=== PATIENT | female | born 1930 | race Caucasian/White ===

== ENCOUNTER 2016-03-18 05:07 | Inpatient (IN) | payer OTHER ==
[~2016-03-18] VITALS: Ht 165.1 cm; Wt 66.8 kg
[~2016-03-18 05:07] MED LIST: CALCIUM 250+D1 EACH PO; CENTRUM SILV1 TABLE1 PO; CLEARLAX510 GM PO; Coumadin dosing per PO; DITROPAN XL5 MG PO; Ditropan PO; ENDOCET 5-3251 EACH PO; Feosol PO; IRON160 M1 PO; Metamucil Packet PO; NEURONTIN300 MG PO; Omega III EPA + DHA PO; PRAVACHOL40 MG PO; Pravachol PO; TENORMIN25 MG PO; Tenormin PO; Tums PO; Vitamin D PO
[2016-03-18 06:36] VITALS: BP 167/70
[2016-03-18 09:59] LABS: HEMATOCRIT 32.6 % (36.0-46.0); MCV 88.8 FL (83-99)
[2016-03-18 12:00] VITALS: BP 162/70
[2016-03-18 15:04] VITALS: BP 135/63
[2016-03-18 20:00] VITALS: BP 126/60
[2016-03-19] VITALS: BP 159/70
[2016-03-19 04:00] VITALS: BP 142/65
[2016-03-19 05:58] LABS: HEMATOCRIT 31.1 % (36.0-46.0); MCV 89.4 FL (83-99)
[2016-03-19 06:23] LABS: ANION GAP 8 MEQ/L (2-14); CHLORIDE 104 MEQ/L (99-109); GFR ESTIMATE (CALCULATED) > 59 mL/min/; GLUCOSE 130 mg/dL (70-99); POTASSIUM 4.5 MEQ/L (3.7-5.4); SAMPLE HEMOLYSIS CHECK 0; SAMPLE ICTERIC CHECK 0; SAMPLE LIPEMIA CHECK 0; SODIUM 139 MEQ/L (136-147); UREA NITROGEN (BUN) 17 mg/dL (9-23)
[2016-03-19 08:12] VITALS: BP 139/65
[2016-03-19 16:59] VITALS: BP 145/66
[2016-03-19 23:11] VITALS: BP 136/62
[2016-03-20 07:32] VITALS: BP 130/59
[2016-03-20] MEDS ORDERED: LIDOCAINE700 MG TD (14:30)
[2016-03-20] MEDS ORDERED: DOCUSATE SODIU100 MG PO (14:30)
[2016-03-20] MEDS ORDERED: SENNA PLUS TAB1 EACH PO (14:30)
[2016-03-20] MEDS ORDERED: LOVENOX40 MG/0.4 SC (14:30)
[2016-03-20 15:40] VITALS: BP 106/53
[2016-03-20] MEDS ORDERED: ROXICODONE5 MG PO ×2 (18:01→18:02)
== END 2016-03-20 16:11 | DRG 470 ==
LOC: 3EAST 05:07 → 2SOUTH 05:07 → 3EAST 11:50 → 2SOUTH 13:19 → 3EAST 03-20 16:11
PROVIDERS: Orthopaedic Surgery
PROC: 0SR90J9 Replacement of Right Hip Joint with Synthetic Substitute, Cemented, Open Approach (ICD-10-PCS; principal; 2016-03-18)
DX: M16.11 Unilateral primary osteoarthritis, right hip (principal); E78.2 Mixed hyperlipidemia; I10 Essential (primary) hypertension; G47.30 Sleep apnea, unspecified; E11.9 Type 2 diabetes mellitus without complications; D64.9 Anemia, unspecified; K21.9 Gastro-esophageal reflux disease without esophagitis; K59.00 Constipation, unspecified; M81.0 Age-related osteoporosis without current pathological fracture; Z96.653 Presence of artificial knee joint, bilateral; Z88.2 Allergy status to sulfonamides; Z79.82 Long term (current) use of aspirin
CPT/HCPCS: 71010; 80048; 85014; 85018; 94799; C1713; C1776; J0131; J0690; J1650; J1885; J3010; J7050; J7120; S0020

== ENCOUNTER 2016-03-20 14:55 | Inpatient (IN) | payer OTHER ==
[~2016-03-20] VITALS: Ht 165.1 cm; Wt 68.3 kg
[~2016-03-20 14:55] MED LIST changes: +DOCUSATE SODIU100 MG PO; +LIDOCAINE700 MG TD; +LOVENOX40 MG/0.4 SC; +SENNA PLUS TAB1 EACH PO
[2016-03-20 16:37] VITALS: BP 147/64
[2016-03-20] MEDS ORDERED: ROXICODONE5 MG PO ×2 (18:01→18:02)
[2016-03-21 02:21] VITALS: BP 144/64
[2016-03-21 04:18] VITALS: BP 151/67
[2016-03-21 05:36] LABS: HEMATOCRIT 28.6 % (36.0-46.0); MCH 30.2 PG (29.0-34.0); MCHC 33.9 G/DL (30.0-36.0); MCV 89.1 FL (83-99); MEAN PLAT.VOLUME 10.8 uM^3 (9.5-12.4); PLATELET COUNT 130 K/uL (156-360); RBC DIS.WIDTH-CV 12.8 % (11.8-14.6); RBC DIS.WIDTH-SD 41.4 % (39-53); RED BLOOD COUNT 3.21 M/uL (3.80-5.20); WHITE BLOOD COUNT 6.4 K/uL (4.1-10.2)
[2016-03-21 05:57] LABS: ALKALINE PHOSPHATASE 42 IU/L (3-129); ANION GAP 7 MEQ/L (2-14); CHLORIDE 101 MEQ/L (99-109); GFR ESTIMATE (CALCULATED) > 59 mL/min/; GLUCOSE 117 mg/dL (70-99); POTASSIUM 4.1 MEQ/L (3.7-5.4); SAMPLE HEMOLYSIS CHECK 0; SAMPLE ICTERIC CHECK 0; SAMPLE LIPEMIA CHECK 0; SODIUM 136 MEQ/L (136-147); TOTAL BILIRUBIN 0.7 MG/DL (0.0-1.0); UREA NITROGEN (BUN) 16 mg/dL (9-23)
[2016-03-21 15:15] VITALS: BP 132/60
[2016-03-22 05:40] VITALS: BP 148/67
[2016-03-22 15:40] VITALS: BP 125/77
[2016-03-23 05:36] VITALS: BP 165/73
[2016-03-23 15:41] VITALS: BP 152/69
[2016-03-24 05:10] VITALS: BP 159/70
[2016-03-24 05:37] VITALS: BP 183/78
[2016-03-24 15:42] VITALS: BP 164/67
[2016-03-25 05:23] VITALS: BP 182/72
[2016-03-25 07:08] VITALS: BP 174/76
[2016-03-25 09:11] VITALS: BP 125/99
[2016-03-25 15:09] VITALS: BP 141/63
[2016-03-26 05:34] VITALS: BP 133/62
[2016-03-26 15:26] VITALS: BP 122/60
[2016-03-27 04:24] VITALS: BP 143/65
[2016-03-27 15:51] VITALS: BP 137/61
[2016-03-28 05:19] LABS: HEMATOCRIT 29.4 % (36.0-46.0); MCH 29.4 PG (29.0-34.0); MCHC 33.3 G/DL (30.0-36.0); MCV 88.3 FL (83-99); RBC DIS.WIDTH-CV 12.9 % (11.8-14.6); RBC DIS.WIDTH-SD 39.7 % (39-53); RED BLOOD COUNT 3.33 M/uL (3.80-5.20); WHITE BLOOD COUNT 6.5 K/uL (4.1-10.2)
[2016-03-28 05:28] LABS: MEAN PLAT.VOLUME 9.9 uM^3 (9.5-12.4)
[2016-03-28 05:34] VITALS: BP 138/72
[2016-03-28 05:36] LABS: PLATELET COUNT 320 K/uL (156-360)
[2016-03-28 05:40] LABS: CHLORIDE 105 mEq/L (99-109); POTASSIUM 4.6 mEq/L (3.7-5.4); SODIUM 138 mEq/L (136-147)
[2016-03-28 05:42] LABS: GLUCOSE 108 mg/dL (70-99)
[2016-03-28 05:44] LABS: TOTAL BILIRUBIN 0.3 mg/dL (0.0-1.0)
[2016-03-28 05:45] LABS: ALKALINE PHOSPHATASE 53 IU/L (3-129); GFR ESTIMATE (CALCULATED) > 59 mL/min/
[2016-03-28 05:46] LABS: UREA NITROGEN (BUN) 15 mg/dL (9-23)
[2016-03-28 06:19] LABS: ANION GAP 8 MEQ/L (2-14)
[2016-03-28 16:20] VITALS: BP 132/58
[2016-03-29 06:09] VITALS: BP 163/69
== END 2016-03-29 14:39 | disposition home health service (06) | DRG 560 ==
LOC: 3WEST 14:55
PROVIDERS: Physical Medicine & Rehabilitation Pain Medicine
PROC: F07M0ZZ Range of Motion and Joint Mobility Treatment of Musculoskeletal System - Whole Body (ICD-10-PCS; principal; 2016-03-20)
DX: Z47.1 Aftercare following joint replacement surgery (principal); Z96.641 Presence of right artificial hip joint; R26.2 Difficulty in walking, not elsewhere classified; G89.18 Other acute postprocedural pain; M25.551 Pain in right hip; M80.051D Age-related osteoporosis with current pathological fracture, right femur, subsequent encounter for fracture with routine healing; M16.11 Unilateral primary osteoarthritis, right hip; B37.0 Candidal stomatitis; D62 Acute posthemorrhagic anemia; D69.6 Thrombocytopenia, unspecified; R55 Syncope and collapse; E77.8 Other disorders of glycoprotein metabolism; E88.09 Other disorders of plasma-protein metabolism, not elsewhere classified; E83.51 Hypocalcemia; I10 Essential (primary) hypertension; I25.10 Atherosclerotic heart disease of native coronary artery without angina pectoris; I49.9 Cardiac arrhythmia, unspecified; E78.00 Pure hypercholesterolemia, unspecified; R32 Unspecified urinary incontinence; Z96.653 Presence of artificial knee joint, bilateral; Z95.5 Presence of coronary angioplasty implant and graft
CPT/HCPCS: 80053; 85027; 87493; 94799; 97110 GO; 97530 GP; J1650